=== PATIENT | female | born 1995 | race Caucasian/White ===

== ENCOUNTER 2017-07-13 09:55 | Outpatient (RCR) | payer OTHER ==
[2017-04-18 08:01] VITALS: BP 111/66
--- NOTE | 2017-04-18 16:52 | ONCOLOGY HISTORY AND PHYSICAL ---
REFERRING PROVIDER TAMMY Saenz REASON FOR CONSULTATION 1. Factor V Leiden heterozygosity. 2. Concern for iron overload/hemochromatosis. 3. Contraception concerns. CHIEF COMPLAINT Patient feels well today. 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 She is otherwise healthy, and her only medication at this time is the Nexplanon implant. She presents today at the request of Ms. Nick for consultation regarding several issues. The patient does have a known diagnosis of factor V Leiden heterozygosity, from testing performed recently. She has also undergone basic labs to include blood counts, chemistries, and iron studies. She has been found to have an extremely high level of iron, with percent saturation of 100%. There are obvious concerns for hereditary hemochromatosis. In addition, she is currently on a contraception implant, and she is concerned about what this means for her clotting risk. REVIEW OF SYSTEMS Otherwise negative, and all systems were reviewed. PAST MEDICAL HISTORY Unremarkable with the exception of known factor V Leiden heterozygosity and recent concern for iron overload. She has no known history of thrombosis. CURRENT MEDICATIONS Nexplanon implant. ALLERGIES No known drug allergies. SOCIAL HISTORY The patient is a nonsmoker. She does drink alcohol on occasion. There is no history of illegal drug abuse. FAMILY HISTORY Again, there is a family history of DVT in her brother diagnosed at age 30. He has a known factor V Leiden mutation. Her mother has a known factor V Leiden mutation. Another brother donates blood regularly, but definitive diagnosis of hereditary hemochromatosis is unknown. VITAL SIGNS Temperature is 97.2, blood pressure 111/66, heart rate is 83, respirations 16, oxygen saturation is 98% on room air. Weight is 58.9 kg. PHYSICAL EXAMINATION GENERAL: Patient is alert and oriented times three, in no apparent distress sitting in the exam room chair. She appears healthy, and she is interactive and quite pleasant. HEENT: Exam reveals anicteric sclerae. NEUROLOGIC: Exam is grossly nonfocal and her gait is normal. SKIN: Exam reveals no concerning rash or lesion. EXTREMITIES: Exam reveals no edema, clubbing or cyanosis. LABORATORY STUDIES Reviewed per the paper chart and [facility] record. IMAGING None today. ASSESSMENT AND RECOMMENDATIONS 1. Factor V Leiden heterozygosity. I had a good visit with Alicia today about this abnormal finding. We discussed her increased risk of thrombosis due to the presence of this mutation. We also discussed a risk of thrombosis in the context of her ongoing contraception. She does not have a personal history of thrombosis, so there is no indication for anticoagulation. We discussed situations that will lead to higher risk of having a clot. Fortunately, she is a nonsmoker, and she understands the importance of never smoking. We moved on to discuss her current method of contraception. I have recommended that she consider perhaps using an IUD or NuvaRing, for example, to try to reduce the level of systemic exposure to estrogens/progestins. She will give this some thought, and she would like to talk with Ms. Nick about this further. I have also discussed the need to discuss with her family members whether they would want to undergo testing for the Factor V Leiden mutation. 2. Iron overload. Upon review of her labs, she is obviously iron overloaded, but I do not see that HFE studies have been performed. I have recommended that she have these done today. We discussed the concern for hereditary hemochromatosis, iron overload, and snf complications that can arise as a result of iron overload. She currently has no signs or symptoms to suggest underlying heart disease. Blood sugars have not been abnormal. Her liver function tests are unremarkable, and she has no new joint issues, but she has been dealing with problems with her joints due to her history of cerebral palsy. These joint symptoms have not changed significantly over time. We moved on to discuss the role of therapeutic phlebotomy, which I do think is indicated for her, even as we wait for her hereditary hemochromatosis studies to return. I will enter orders for her to have one unit of blood phlebotomized weekly for the next six weeks. She will then go to the lab and have repeat studies done so that we can review them at the time of her next followup with me in six to eight weeks. Thank you very much, Ms. Nick, for allowing me to take part in the care of this delightful patient. Please do not hesitate to call with any questions or concerns. MORAIMA
[2017-04-20 15:15] VITALS: BP 124/62
[2017-04-20] MEDS: LIDOCAINE/SOD BICARB 8.4% SYR ID PRN (15:19)
[2017-04-20 15:20] VITALS: BP 126/79
[2017-04-20 15:30] VITALS: BP 119/94
[2017-04-20 16:00] VITALS: BP 110/71
[2017-04-20 16:30] VITALS: BP 114/72
[2017-04-23 13:10] VITALS: BP 113/71
--- NOTE | 2017-04-26 04:22 | [facility] ONCOLOGY NOTE ---
DATE OF VISIT: April 23, 2017 CHIEF COMPLAINT/REASON FOR VISIT The patient is a pleasant patient of Dr. Harris who presents for an acute visit followup following a syncopal episode with phlebotomy. 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 Given her percent saturation, I am nearly certain that she has hemochromatosis, and her labs are pending. I completely agree with the assessment made by Dr. Harris dated April 18, 2017. Her interval history includes the phlebotomy of one unit, but then had a syncopal episode immediately following the phlebotomy. She is concerned, given , "I am only 5 foot 3 and 130 pounds" that one unit of blood is too much. It is very reasonable to use phlebotomy of a half unit in the future. We will repeat labs in approximately two weeks to see what benefit she receives from this. If her iron studies are much better, we could forego phlebotomy for another month or two until her iron starts to increase again. Given the syncope , I have asked her to check labs monthly for now, but we will cancel further phlebotomies in the short term. PAST MEDICAL HISTORY 1. Factor V Leiden heterozygosity. No known history of thrombosis. 2. Suspected hereditary hemochromatosis. Syncope with a full unit phlebotomy. CURRENT MEDICATIONS Nexplanon implant. ALLERGIES No known drug allergies. SOCIAL HISTORY Nonsmoker, rare alcohol. No illicit drug use. FAMILY HISTORY Brother with a DVT at age 30 with known factor V Leiden mutation. Mother with factor V Leiden mutation. Unknown if anyone in the family has hereditary hemochromatosis, but her brother has issues with iron. REVIEW OF SYSTEMS CONSTITUTIONAL: No fevers, chills, significant weight change. HEENT: No headache or vision changes. CARDIOVASCULAR: No chest pain, dyspnea on exertion or edema. RESPIRATORY: No shortness of breath, wheeze, cough. GI: No nausea or vomiting. : No dysuria or hematuria. Remainder of full 14-point review of systems is otherwise negative. PHYSICAL EXAMINATION VITAL SIGNS: Blood pressure 113/71, pulse 71, respiratory rate 16, temperature 98.5 Fahrenheit, oxygen saturation 95% on room air. Weight 58.9 kg. Pain 0/10 , fatigue 5/10. GENERAL: Stable condition, resting comfortably in the chair. HEENT: Normocephalic, atraumatic. EXTREMITIES: No clubbing, cyanosis or edema. PSYCHIATRIC: Normal mood and affect. Full physical exam deferred today due to amount of time spent in counseling and coordination of care. ASSESSMENT AND PLAN The patient is a pleasant 21-year-old female with the followin. Factor V Leiden heterozygosity. Agree with avoiding estrogen/progesterone supplementation. 2. Iron overload. I am very confident that she has hereditary hemochromatosis , and the labs are still pending. 3. Syncope following phlebotomy for #2. Would avoid a full unit phlebotomy in the future and perform only a half unit phlebotomy. Considering the fatigue, we will recheck her labs in approximately two weeks to see if she is a candidate for further phlebotomy at that time. I advised that I fully anticipate she will need periodic phlebotomies in the future, but we could utilize a half unit phlebotomy. We will check her again in 2-3 weeks, and then again a month after that, and follow up with Dr. Harris as he planned. I answered all of her questions today. Billing: Return visit level 3. Total time 20 minutes, counseling time 15. MTDD
[2017-06-13 14:34] VITALS: BP 108/69
--- NOTE | 2017-06-13 20:20 | ONCOLOGY FOLLOW UP NOTE ---
EVENT DATE: June 13, 2017 REASON FOR FOLLOWUP 1. Factor V Leiden heterozygosity. 2. Concern for iron overload/hemochromatosis. CHIEF COMPLAINT The patient feels well today. HISTORY OF PRESENT ILLNESS Alicia presents to clinic for a follow-up visit today. She reports that she is feeling pretty good in general, but she had a tough time with her first attempted therapeutic phlebotomy. She relates her experience to me. She had completed the one unit phlebotomy, and had rather abruptly felt nauseated, and then she lost consciousness very briefly for several seconds. She was attended to quickly by infusion staff, and she had complete recovery and returned home. She had some fatigue for the following days, but she reports no residual symptoms. She did have followup with my colleague, Dr. Kahn, thereafter. He had made the recommendation to have her recheck her labs and follow up with me today. She reports that she has had a busy schedule. She is anticipating a lot of hours to be spent in preparation for upcoming finals. 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 REVIEW OF SYSTEMS Otherwise negative, and all systems were reviewed. PAST MEDICAL HISTORY Unremarkable with the exception of known factor V Leiden heterozygosity and recent concern for iron overload. She has no known history of thrombosis. CURRENT MEDICATIONS Nexplanon implant. ALLERGIES No known drug allergies. SOCIAL HISTORY The patient is a nonsmoker. She does drink alcohol on occasion. There is no history of illegal drug abuse. FAMILY HISTORY Again, there is a family history of DVT in her brother diagnosed at age 30. He has a known factor V Leiden mutation. Her mother has a known factor V Leiden mutation. Another brother donates blood regularly, but definitive diagnosis of hereditary hemochromatosis is unknown. VITAL SIGNS Temperature is 98, blood pressure 108/69, pulse is 99, respirations 16, oxygen saturation is 94% on room air. Weight is 58.2 kg. PHYSICAL EXAMINATION GENERAL: Patient is alert and oriented times three, in no apparent distress sitting in the exam room chair. She appears healthy. HEENT: Exam reveals anicteric sclerae. NEUROLOGIC: Exam is grossly nonfocal and her gait is normal. EXTREMITIES: Exam reveals no edema, clubbing or cyanosis. LABORATORY STUDIES Reviewed per the outside laboratory. She has had stability/slight improvement in her serum ferritin and iron studies. Her CBC remains normal. ASSESSMENT AND RECOMMENDATIONS 1. Factor V Leiden heterozygosity. The patient was given information today about a potential reasonable switch from her current implant to IUD placement. 2. Concern for iron overload. As discussed with the patient today, I again do not see results of her hemochromatosis testing. I have asked clinic staff to search for these records. If this has not been drawn, we will again request for the HFE studies to be done. I do think she has hereditary hemochromatosis, and we spent time reviewing management. I do think it would be reasonable for her to consider therapeutic phlebotomy every two weeks or so, and we would not again draw an entire unit of blood. Instead, we would draw half a unit, and monitor her symptoms closely. If she does end up tolerating this, I think having therapeutic phlebotomy every other week for the next three months would be a good start. Once she achieves a borderline iron deficient state, which would be our goal, she would then be able to move forward with maintenance therapeutic phlebotomies on a less rigorous schedule. I will plan to see her back in three months for followup, and labs will again be reviewed at that time. MORAIMA
[2017-06-29 11:00] VITALS: BP 105/80
[2017-07-02] MEDS: LIDOCAINE/SOD BICARB 8.4% SYR ID PRN (09:16)
[2017-07-02 09:18] VITALS: BP 112/76
[2017-07-02 10:07] VITALS: BP 104/72
[2017-07-02 10:37] VITALS: BP 115/53
[~2017-07-13] VITALS: Ht 160 cm; Wt 59.2 kg
[~2017-07-13 09:55] MED LIST: DEXTROSE 5%(*) 100 ML BAG 100 ML IVPB PRN; ETON68IM SQ; NS(*) 0.9% 100 ML BAG 100 ML IVPB PRN; NS(*) 0.9% 1000 ML BAG 1,000 ML IV PRN
[2017-07-13 10:13] VITALS: BP 103/72
== END 2017-07-16 ==
LOC: SPU 09:55
PROVIDERS: ATTEND Internal Medicine Medical Oncology
DX: E83.110 Hereditary hemochromatosis (principal); E72.12 Methylenetetrahydrofolate reductase deficiency; D68.51 Activated protein C resistance
CPT/HCPCS: 85014; 85027; 99195; 99202; 99212; J7030

== ENCOUNTER 2018-01-16 14:30 | Outpatient (RCR) | payer OTHER ==
[2017-12-06 15:03] VITALS: BP 114/63
[2017-12-06 15:26] LABS: PLATELET COUNT, AUTOMATED 244 K/uL (150-450)
[2018-01-04 10:46] VITALS: BP 119/60
[2018-01-04 10:56] LABS: PLATELET COUNT, AUTOMATED 212 K/uL (150-450)
[~2018-01-16 14:30] MED LIST changes: +LIDOCAINE/SOD BICARB 8.4% SYR ID PRN; -NS(*) 0.9% 1000 ML BAG 1,000 ML IV PRN
[2018-01-16 14:36] VITALS: BP 108/69
--- NOTE | 2018-01-23 22:51 | ONCOLOGY FOLLOW UP NOTE ---
EVENT DATE: January 16, 2018 REASON FOR FOLLOWUP 1. Factor V Leiden heterozygosity. 2. Hereditary hemochromatosis. INTERIM HISTORY Alicia returns to clinic for a followup visit today. In general, she has been feeling pretty good. She does report some fatigue, but she blames this mostly on studying for finals. She has continued with therapeutic phlebotomy of 0.5 units each session. She has had no further episodes of lightheadedness or weakness. She has had followup labs drawn, and she is here to review the results. REVIEW OF SYSTEMS Otherwise negative, and all systems are reviewed. PAST MEDICAL HISTORY 1. Factor V Leiden heterozygosity. 2. Hereditary hemochromatosis (C282Y homozygosity). CURRENT MEDICATIONS Nexplanon implant. ALLERGIES No known drug allergies. SOCIAL HISTORY The patient is a nonsmoker. She does drink alcohol on occasion. There is no history of illegal drug abuse. FAMILY HISTORY Again, there is a family history of DVT in her brother, diagnosed at age 30. He has a known factor V Leiden mutation. Her mother has a known factor V Leiden mutation. Another brother donates blood regularly, but definitive diagnosis of hereditary hemochromatosis is unknown. VITAL SIGNS Temperature is 97.4, blood pressure 108/69, heart rate is 87, respirations 16. PHYSICAL EXAMINATION GENERAL: Patient is alert and oriented times three, no apparent distress, sitting in the exam room chair. She is in good spirits and quite interactive. HEENT: Anicteric sclerae. NEUROLOGIC: Grossly nonfocal, and her gait is normal. EXTREMITIES: No edema, clubbing, or cyanosis. There is no erythema or tenderness to palpation. SKIN: Cursory reveals no concerning rash or lesion. LABORATORY STUDIES Reviewed per the [facility] record. ASSESSMENT AND PLAN Hereditary hemochromatosis. Alicia continues to do well with therapeutic phlebotomy. We spent time today reviewing her labs. She has made significant progress in terms of her iron stores, and we spent time discussing her goal ferritin of 50 or less for ideal management of her iron stores. She has been in the range of about 100, and she could make a bit more progress. We will have her plan on moving to every other week phlebotomies, and we will continue to monitor her labs. I will plan to see her back in a few months for followup. She is certainly more than welcome to call with any questions or concerns in the meantime. MORAIMA
== END 2018-03-05 ==
LOC: ONC 14:30
PROVIDERS: ATTEND Internal Medicine Medical Oncology
DX: E83.110 Hereditary hemochromatosis (principal); E72.12 Methylenetetrahydrofolate reductase deficiency
CPT/HCPCS: 36415; 82040; 82247; 82310; 82374; 82435; 82565; 82728; 82947; 83540; 83550; 84075; 84132; 84155; 84295; 84450; 84460; 84520; 85025; 99195; 99212

== ENCOUNTER 2018-05-15 14:53 | Outpatient (RCR) | payer OTHER ==
[2018-03-12 14:12] VITALS: BP 114/68
[2018-03-12 14:13] LABS: PLATELET COUNT, AUTOMATED 199 K/uL (150-450)
[2018-04-08 08:07] VITALS: BP 113/77
[2018-04-08 08:26] LABS: PLATELET COUNT, AUTOMATED 231 K/uL (150-450)
[2018-04-08 09:23] VITALS: BP 116/74
--- NOTE | 2018-04-08 09:41 | NUR ---
SW provided letter of excuse from class for patient today following her phlebotomy.
[2018-04-08] MEDS: LIDOCAINE/SOD BICARB 8.4% SYR ID PRN (09:49)
[2018-04-15 11:50] LABS: PLATELET COUNT, AUTOMATED 261 K/uL (150-450)
[2018-04-17 15:34] VITALS: BP 121/72
--- NOTE | 2018-04-19 04:46 | ONCOLOGY FOLLOW UP NOTE ---
EVENT DATE: April 17, 2018 CHIEF COMPLAINT 1. Factor V Leiden heterozygosity. 2. Hereditary hemochromatosis. HISTORY OF PRESENT ILLNESS The patient returns to clinic today for a followup visit. She reports overall feeling generally good. She does have some fatigue, but attributes this mostly to studying for school. 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 She tells me that she remains compliant with therapeutic phlebotomy of 0.5 units every 4-6 weeks. Currently, her average is one treatment/0.5 units of phlebotomy about every five weeks. She denies any further episodes of lightheadedness or weakness. She continues to follow up with labs. She is slightly concerned about her hematocrit dropping down to 43% from 49% per most recent labs last week. She is asymptomatic. PAST MEDICAL HISTORY 1. Factor V Leiden heterozygosity. 2. Hereditary hemochromatosis (C282Y homozygosity). CURRENT MEDICATIONS Nexplanon implant. ALLERGIES No known drug allergies. SOCIAL HISTORY The patient is a nonsmoker. She does drink alcohol on occasion. There is no history of illegal drug abuse. FAMILY HISTORY Again, there is a family history of DVT in her brother, diagnosed at age 30. He has a known factor V Leiden mutation. Her mother has a known factor V Leiden mutation. Another brother donates blood regularly, but definitive diagnosis of hereditary hemochromatosis is unknown. REVIEW OF SYSTEMS A 12-point review of systems is performed and is negative, with the exception of statements above. Patient reports a mild fatigue, but otherwise is feeling well. PHYSICAL EXAMINATION VITAL SIGNS: Weight per chart. Temperature 96.7 degrees F, BP 121/72, P 79, R 16, oxygen saturation 92% on room air. GENERAL: Patient is a well-developed young woman who appears well nourished and well hydrated. She is in no acute distress. HEAD: Normocephalic, atraumatic. EYES: Sclerae anicteric. MOUTH: Moist mucous membranes. NECK: Supple. No adenopathy. LUNGS: Lungs reveal clear breath sounds to auscultation bilaterally. CARDIOVASCULAR: Regular rate and rhythm. No murmurs. No ectopy. Peripheral vascular examination reveals apparently peripheral normal blood flow. EXTREMITIES: No edema, clubbing, or cyanosis. There is no erythema or tenderness to palpation. DERM: Cursory examination does not reveal any suspicious lesions. NEUROLOGIC: Grossly intact. Patient is alert and oriented x3. PSYCH: Mood and affect are appropriate. She is slightly anxious on exam, but is at baseline. LABORATORY CBC on 04/15/2018: WBC 5.4, ANC 2.8, Hemoglobin 15.0, Hematocrit 43.1%, Platelets 261,000. Iron studies on the same date of service: Ferritin 89, iron saturation 57.6%, TIBC 269, Iron 155. IMPRESSION AND PLAN This is a young, pleasant 22-year-old female with a history of hereditary hemochromatosis. She continues to tolerate therapeutic phlebotomy quite well. She currently receives one therapeutic phlebotomy of 0.5 units approximately every 4-6 weeks. She is only receiving half a unit during phlebotomy, as she did have difficulty with her first phlebotomy and had a syncopal episode. Since then, half a unit is much more tolerable for her. She has not had any similar events. We spent time today reviewing her most recent labs, in particular her most recent iron levels. Her ferritin has decreased down to 89, and her iron saturation has come down to 58%. She is aware that our goal is a ferritin of 50 or less and an iron saturation of 25% or less, although we did discuss realistic goals, and she is aware that she may never reach a goal ferritin of 50. Dr. Rubio did come in to the room and spoke with the patient during our visit, and agrees with the above assessment. We also explained to the patient that if we changed her current phlebotomy schedule, we could potentially cause her to become anemic and iron deficient, resulting in symptomatic iron deficiency anemia. 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 1. Hereditary hemochromatosis, Factor V Leiden heterozygosity: Reviewed with patient per above. She is aware of her most recent lab results. She will continue on her current lab schedule and her current therapeutic phlebotomy schedule at 0.5 units once every 4-6 weeks. 2. Patient will return to the clinic in three months for followup with MD. 3. As noted, Dr. Rubio agrees with the above assessment and plan. [facility]. [facility] HOSPITALShayy
[~2018-05-15 14:53] MED LIST changes: -LIDOCAINE/SOD BICARB 8.4% SYR ID PRN
[2018-05-15 14:58] VITALS: BP 120/77
[2018-05-15] MEDS: LIDOCAINE/SOD BICARB 8.4% SYR ID PRN (15:30)
[2018-05-15 16:00] VITALS: BP 126/67
== END 2018-06-09 ==
LOC: SPU 14:53
PROVIDERS: ATTEND Internal Medicine Medical Oncology
DX: E83.110 Hereditary hemochromatosis (principal); E72.12 Methylenetetrahydrofolate reductase deficiency
CPT/HCPCS: 36415; 82728; 83540; 83550; 85014; 85025; 99195; 99212

== ENCOUNTER 2018-07-21 17:02 | Emergency (ER) | payer OTHER ==
[~2018-07-21 17:02] MED LIST changes: -DEXTROSE 5%(*) 100 ML BAG 100 ML IVPB PRN; -NS(*) 0.9% 100 ML BAG 100 ML IVPB PRN
--- NOTE | 2018-07-21 17:31 | ER Report ---
History and Physical Time Seen By MD: 17:23 Hx. of Stated Complaint: Pt. having abdominal pain and cramping with diarrhea for over a week. Decreased appetite. No fevers, but clammy. Pain intermittent, but woke her from sleep 2 nights ago. Has not been around anyone that has been sick. HPI/ROS CHIEF COMPLAINT: Abdominal pain HISTORY OF PRESENT ILLNESS: 22 year old female presents to ED with abdominal pain that started 1.5 weeks ago. Patient reports she had abdominal pain and with constipation. She went to her PCP who had her take Miralax. Reports that she then had a small BM. However, has since had problems with constipation, gas, bloating, and mid lower abdominal pain. Reports a bout of diarrhea two days ago stating it was loose and yellow stool. Denies associated symptoms of nausea, vomiting, and fevers. REVIEW OF SYSTEMS: Constitutional: No fevers, change in appetite, chills, fatigue Respiratory: No cough, no dyspnea. Cardiovascular: No chest pain, no palpitations. Gastrointestinal: No vomiting. Mid-lower abdominal pain, constipation, bloating, gas, reflux symptoms with meals. Musculoskeletal: No back pain. Allergies: Coded Allergies: No Known Drug Allergies (Unverified , 07/21/18) Home Meds Reported Medications Etonogestrel (NEXPLANON) 68 Mg Implant, 68 MG SQ DIRECTED, IMPLANT 04/18/17 Past Medical/Surgical History Past medical hx significant for migraines, frequent yeast infections, hemochromotosis followed by the cancer center. She has a family hx of factor 5 disorder. Past surgical hx for wisdom teeth removal and adenoid removal. Reviewed Nurses Notes: Yes Hx Smoking: No Smoking Status: Never Smoker Hx Substance Use Disorder: No Hx Alcohol Use: No Constitutional Vital Sign - Last 24 Hours 07/21/18 07/21/18 07/21/18 07/21/18 17:06 17:11 18:02 18:32 Temp 98.0 Pulse 72 78 65 B/P (MAP) 111/68 111/68 (82) Pulse Ox 95 94 96 O2 Delivery Room Air 07/21/18 07/21/18 07/21/18 07/21/18 18:33 19:00 19:05 19:30 Pulse ??? B/P (MAP) 108/56 (73) 107/61 (76) 110/62 (78) 07/21/18 07/21/18 07/21/18 07/21/18 19:35 20:00 20:05 20:30 Pulse ??? 67 B/P (MAP) 109/63 (78) 98/63 (75) Pulse Ox 92 07/21/18 20:35 Pulse 71 Pulse Ox 92 Physical Exam General Appearance: The patient is alert, has no immediate need for airway protection and no current signs of toxicity. Eyes: Pupils equal and round no injection. Respiratory: Chest is non tender, lungs are clear to auscultation. Cardiac: regular rate and rhythm Gastrointestinal: Abdomen is soft and non tender, no masses, but distended. bowel sounds hypoactive. Musculoskeletal: Neck: Neck is supple and non tender. Extremities have full range of motion and are non tender. Skin: No rashes or lesions. DIFFERENTIAL DIAGNOSIS: After history and physical exam differential diagnosis was considered for constipation, , colitis, reflux, pancreatitis. Medical Decision Making Data Points Result Diagram: 07/21/18 1754 07/21/18 1754 Laboratory Hematology Test 07/21/18 17:54 07/21/18 18:54 Red Blood Count 4.89 M/uL (4.17-5.56) Mean Corpuscular Volume 89.2 fL (80.0-96.0) Mean Corpuscular Hemoglobin 31.4 pg (26.0-33.0) Mean Corpuscular Hemoglobin Concent 35.2 g/dL (32.0-36.0) Red Cell Distribution Width 13.2 % (11.5-14.5) Mean Platelet Volume 8.6 fL (7.2-11.1) Neutrophils (%) (Auto) 51.4 % (39.4-72.5) Lymphocytes (%) (Auto) 36.3 % (17.6-49.6) Monocytes (%) (Auto) 9.0 % (4.1-12.4) Eosinophils (%) (Auto) 2.8 % (0.4-6.7) Basophils (%) (Auto) 0.5 % (0.3-1.4) Nucleated RBC Relative Count (auto) 0.1 /100WBC Neutrophils # (Auto) 3.5 K/uL (2.0-7.4) Lymphocytes # (Auto) 2.5 K/uL (1.3-3.6) Monocytes # (Auto) 0.6 K/uL (0.3-1.0) Eosinophils # (Auto) 0.2 K/uL (0.0-0.5) Basophils # (Auto) 0.0 K/uL (0.0-0.1) Nucleated RBC Absolute Count (auto) 0.00 K/uL Sodium Level 140 mmol/L (137-145) Potassium Level 3.8 mmol/L (3.5-5.0) Chloride Level 105 mmol/L (98-107) Carbon Dioxide Level 24 mmol/L (22-31) Blood Urea Nitrogen 13 mg/dl (7-18) Creatinine 0.70 mg/dl (0.52-1.04) Glomerular Filtration Rate Calc > 60.0 Random Glucose 91 mg/dl (75-110) Calcium Level 9.4 mg/dl (8.4-10.2) Total Bilirubin 0.2 mg/dl (0.2-1.3) Aspartate Amino Transf (AST/SGOT) 24 U/L (0-35) Alanine Aminotransferase (ALT/SGPT) 26 U/L (0-56) Alkaline Phosphatase 56 U/L (0-126) C-Reactive Protein < 0.5 mg/dl (<1.0) Total Protein 7.3 g/dl (6.3-8.2) Albumin 4.4 g/dl (3.5-5.0) Amylase Level 108 U/L (0-110) Lipase 67 U/L (23-300) Urine Color Straw Urine Clarity Clear Urine pH 6.0 pH (4.8-9.5) Urine Specific Mineral 1.005 Urine Protein Negative mg/dL (NEGATIVE) Urine Glucose (UA) Negative mg/dL (NEGATIVE) Urine Ketones Negative mg/dL (NEGATIVE) Urine Blood Negative (NEGATIVE) Urine Nitrite Negative (NEGATIVE) Urine Bilirubin Negative (NEGATIVE) Urine Urobilinogen Negative mg/dL (0.2-1.9) Urine Leukocyte Esterase Trace (NEGATIVE) Urine RBC None /HPF (0-2/HPF) Urine WBC <1 /HPF (0-5/HPF) Urine Squamous Epithelial Cells Few /LPF (</=FEW) Urine Bacteria Few /HPF (NONE-FEW) Urine Mucus None /HPF (NONE-FEW) Urine HCG, Qualitative Negative (NEGATIVE) Chemistry Test 07/21/18 17:54 07/21/18 18:54 White Blood Count 6.8 k/uL (4.5-11.0) Red Blood Count 4.89 M/uL (4.17-5.56) Hemoglobin 15.4 g/dL (12.0-16.0) Hematocrit 43.7 % (34.0-47.0) Mean Corpuscular Volume 89.2 fL (80.0-96.0) Mean Corpuscular Hemoglobin 31.4 pg (26.0-33.0) Mean Corpuscular Hemoglobin Concent 35.2 g/dL (32.0-36.0) Red Cell Distribution Width 13.2 % (11.5-14.5) Platelet Count 212 K/uL (150-450) Mean Platelet Volume 8.6 fL (7.2-11.1) Neutrophils (%) (Auto) 51.4 % (39.4-72.5) Lymphocytes (%) (Auto) 36.3 % (17.6-49.6) Monocytes (%) (Auto) 9.0 % (4.1-12.4) Eosinophils (%) (Auto) 2.8 % (0.4-6.7) Basophils (%) (Auto) 0.5 % (0.3-1.4) Nucleated RBC Relative Count (auto) 0.1 /100WBC Neutrophils # (Auto) 3.5 K/uL (2.0-7.4) Lymphocytes # (Auto) 2.5 K/uL (1.3-3.6) Monocytes # (Auto) 0.6 K/uL (0.3-1.0) Eosinophils # (Auto) 0.2 K/uL (0.0-0.5) Basophils # (Auto) 0.0 K/uL (0.0-0.1) Nucleated RBC Absolute Count (auto) 0.00 K/uL Glomerular Filtration Rate Calc > 60.0 Calcium Level 9.4 mg/dl (8.4-10.2) Total Bilirubin 0.2 mg/dl (0.2-1.3) Aspartate Amino Transf (AST/SGOT) 24 U/L (0-35) Alanine Aminotransferase (ALT/SGPT) 26 U/L (0-56) Alkaline Phosphatase 56 U/L (0-126) C-Reactive Protein < 0.5 mg/dl (<1.0) Total Protein 7.3 g/dl (6.3-8.2) Albumin 4.4 g/dl (3.5-5.0) Amylase Level 108 U/L (0-110) Lipase 67 U/L (23-300) Urine Color Straw Urine Clarity Clear Urine pH 6.0 pH (4.8-9.5) Urine Specific Mineral 1.005 Urine Protein Negative mg/dL (NEGATIVE) Urine Glucose (UA) Negative mg/dL (NEGATIVE) Urine Ketones Negative mg/dL (NEGATIVE) Urine Blood Negative (NEGATIVE) Urine Nitrite Negative (NEGATIVE) Urine Bilirubin Negative (NEGATIVE) Urine Urobilinogen Negative mg/dL (0.2-1.9) Urine Leukocyte Esterase Trace (NEGATIVE) Urine RBC None /HPF (0-2/HPF) Urine WBC <1 /HPF (0-5/HPF) Urine Squamous Epithelial Cells Few /LPF (</=FEW) Urine Bacteria Few /HPF (NONE-FEW) Urine Mucus None /HPF (NONE-FEW) Urine HCG, Qualitative Negative (NEGATIVE) Urinalysis Test 07/21/18 18:54 Urine Color Straw Urine Clarity Clear Urine pH 6.0 pH (4.8-9.5) Urine Specific Mineral 1.005 Urine Protein Negative mg/dL (NEGATIVE) Urine Glucose (UA) Negative mg/dL (NEGATIVE) Urine Ketones Negative mg/dL (NEGATIVE) Urine Blood Negative (NEGATIVE) Urine Nitrite Negative (NEGATIVE) Urine Bilirubin Negative (NEGATIVE) Urine Urobilinogen Negative mg/dL (0.2-1.9) Urine Leukocyte Esterase Trace (NEGATIVE) Urine RBC None /HPF (0-2/HPF) Urine WBC <1 /HPF (0-5/HPF) Urine Squamous Epithelial Cells Few /LPF (</=FEW) Urine Bacteria Few /HPF (NONE-FEW) Urine Mucus None /HPF (NONE-FEW) Urine HCG, Qualitative Negative (NEGATIVE) EKG/Imaging Imaging Examination: ACUTE ABDOMEN SERIES 3 VIEW Comparison: None. History: abdominal pain x 10days Findings: Cardiac and hilar contour size is normal. No consolidation, nodule, or peribronchial inflammation. No pneumothorax, edema, or effusion. No pneumoperitoneum. Small bowel gas pattern is unremarkable. Moderate amount of stool predominantly within the right hemicolon. No evidence of mass effect or organomegaly. No soft tissue calcifications. Osseous structures are intact. IMPRESSION: 1. Negative chest. 2. Moderate amount of stool in the colon. Report Dictated By: Dandy Garcia MD at 07/21/2018 8:33 PM Report E-Signed By: Dandy Garcia MD at 07/21/2018 8:35 PM ED Course/Re-evaluation ED Course Upon arrival to the ED patient admitted to an exam room, hx and physical obtained, differentials considered. Patient presents to ED with abdominal pain that started 1.5 weeks ago. Reports she had abdominal pain and with constipation. She went to her PCP who had her take Miralax. Reports that she th en had a small BM. However, has since had problems with constipation, gas, bloating, reflux, and mid lower abdominal pain. Reports a bout of diarrhea two days ago stating it was loose and yellow stool. Denies associated symptoms of nausea, vomiting, and fevers. Abdomen distended with hypoactive bowel sounds. Heart rate and rhythm normal. Lungs are clear. CBC, CMP, UA, urine HCG, amylase, lipase, and CRP obtained, all of which were normal. abdominal x-ray then obtained. Findings with moderate amount of stool in the colon. No other acute findings noted. Informed patient of results. Gave patient one dose of magnesium citrate. Will have patient discharge home tonight. If no improvement, she is to take another dose of magnesium citrate in the morning. She will follow-up with her PCP. Patient is in agreement with plan of care. Decision to Disposition Date: Jul 21, 2018 Decision to Disposition Time: 20:50 Depart Departure Latest Vital Signs Vital Signs Date Time Temp Pulse Resp B/P (MAP) Pulse Ox O2 Delivery O2 Flow Rate FiO2 07/21/18 20:35 71 92 07/21/18 20:30 98/63 (75) 07/21/18 17:06 98.0 Room Air Impression: Primary Impression: Constipation Condition: Improved Disposition: HOME OR SELF-CARE Patient Instructions: Constipation (ED) Additional Instructions: Increase fluid intake. Increase fiber in your diet. Increase exercise. Follow up with your primary care provider in the next week. Return to the ER if condition worsens. If no improvement with the Magnesium Citrate you may repeat tomorrow morning. Problem Qualifiers Primary Impression: Constipation Constipation type: unspecified constipation type Qualified Codes: K59.00 - Constipation, unspecified TAMIKO BAILEY Jul 21, 2018 17:31
[2018-07-21] MEDS ORDERED: NS(*) 0.9% 1000 ML BAG 1,000 ML IV ONE (17:37)
[2018-07-21 18:11] LABS: PLATELET COUNT, AUTOMATED 212 K/uL (150-450)
[2018-07-21 20:30] VITALS: BP 98/63
--- NOTE | 2018-07-21 20:39 | RADIOLOGY IMAGING REPORT ---
FACILITY: [facility] PATIENT NAME: Alicia Riddle : 1995 MR: [id number] V: [id number] EXAM DATE: ORDERING PHYSICIAN: TAMIKO BAILEY TECHNOLOGIST: Location: [facility] [place] Patient: Alicia Riddle : 1995 Visit/Account:[id number] Date of Sevice: 07/21/2018 Examination: ACUTE ABDOMEN SERIES 3 VIEW Comparison: None. History: abdominal pain x 10days Findings: Cardiac and hilar contour size is normal. No consolidation, nodule, or peribronchial infla mmation. No pneumothorax, edema, or effusion. No pneumoperitoneum. Small bowel gas pattern is unremarkable. Moderate amount of stool predominantl y within the right hemicolon. No evidence of mass effect or organomegaly. No soft tissue calcificat ions. Osseous structures are intact. IMPRESSION: 1. Negative chest. 2. Moderate amount of stool in the colon. Report Dictated By: Dandy Garcia MD at 07/21/2018 8:33 PM Report E-Signed By: Dandy Garcia MD at 07/21/2018 8:35 PM WSN:[id number]
[2018-07-21] MEDS ORDERED: MAGNESIUM CITRATE 300 ML BTL PO ONE (20:50)
== END 2018-07-21 21:03 | disposition home or self-care (01) ==
LOC: ER 17:25
DX: K59.00 Constipation, unspecified (principal); R63.0 Anorexia
CPT/HCPCS: 74022; 81001; 81025; 82150; 83690; 85025; 86140; 96360; 99283; J7030; 82040; 82247; 82310; 82374; 82435; 82565; 82947; 84075; 84132; 84155; 84295; 84450; 84460; 84520

== ENCOUNTER 2018-08-28 09:00 | Outpatient (RCR) | payer OTHER ==
[2018-06-21 15:34] VITALS: BP 108/64
[2018-06-25 12:48] VITALS: BP 125/80
[2018-06-25 12:49] LABS: PLATELET COUNT, AUTOMATED 254 K/uL (150-450)
[2018-06-25] MEDS: LIDOCAINE/SOD BICARB 8.4% SYR ID PRN (13:45)
[2018-06-25 13:56] VITALS: BP 124/76
[2018-07-30 14:37] VITALS: BP 122/80
[2018-07-30 14:48] LABS: PLATELET COUNT, AUTOMATED 234 K/uL (150-450)
[2018-07-30] MEDS: LIDOCAINE/SOD BICARB 8.4% SYR ID PRN (15:00)
[2018-07-30 15:29] VITALS: BP 124/65
[2018-07-30 15:31] VITALS: BP 124/65
--- NOTE | 2018-07-31 03:25 | ONCOLOGY FOLLOW UP NOTE ---
EVENT DATE: July 30, 2018 CHIEF COMPLAINT Followup for factor V Leiden and hereditary hemochromatosis. HISTORY OF PRESENT ILLNESS Patient is a 22-year-old female who was seen today in followup. She undergoes phlebotomy (0.5 units) every four to six weeks. Her ferritin remains slightly elevated, last at 107, with a serum iron of 210. Iron saturation was 78.7%. She tolerates her phlebotomy fairly well. She does have some arthralgias, but feels it is likely related to her cerebral palsy. 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 HEMATOLOGY HISTORY Patient was diagnosed with elevated ferritin at age 20. She underwent workup and was found to have hereditary hemochromatosis (C282Y homozygosity). She is also heterozygous for factor V Leiden. Currently receiving phlebotomy on an [id number]-six-week basis. PAST MEDICAL HISTORY 1. Factor V Leiden heterozygosity. 2. Hereditary hemochromatosis (C282Y homozygosity). 3. Cerebral palsy. FAMILY HISTORY Brother was diagnosed with DVT at age 30 and has known factor V Leiden. Mother had a known factor V Leiden mutation. Another brother donates blood regularly, but no definitive diagnosis of hemochromatosis has been made. Father had a DVT but was negative for factor V Leiden. SOCIAL HISTORY Patient is single. She is at the [employer] in [facility] [place], [place] and has one year left. She does not smoke cigarettes. She drinks alcohol on occasion. MEDICATIONS Nexplanon implant every three months. ALLERGIES No known drug allergies. REVIEW OF SYSTEMS A 12-point review of systems is performed and is negative except as stated above. PHYSICAL EXAMINATION VITAL SIGNS: BP 124/65, P 62, R 16, temp 98.8, O2 sat 93%. GENERAL: Patient is a well-developed, well-nourished female in no acute distress. HEAD: Normocephalic, atraumatic. EYES: Sclerae anicteric. MOUTH: Moist mucous membranes. LUNGS: Clear bilaterally. CARDIOVASCULAR: Heart rate regular, 62 per minute, without murmur. EXTREMITIES: No edema. NEURO: Nonfocal. LABORATORY CBC today reveals a WBC of 5.6, hemoglobin 15.6, hematocrit 44.5, platelets 234,000. Iron studies are pending. IMPRESSION The patient is a 22-year-old female with factor V Leiden heterozygosity as well as hereditary hemochromatosis (C282Y homozygosity). She undergoes phlebotomy on an [id number]-[id number]-six-week basis in attempts to lower her ferritin less than 50 as well as hematocrit less than 40. PLAN 1. Hereditary hemochromatosis/factor V Leiden heterozygosity. As hematocrit today is over 40, she will undergo a 0.5 unit phlebotomy. She tolerated this well. 2. She will follow up with Dr. Rubio on 08/14/18. At that time, we will write standing orders so that she can have her labs obtained at the [facility]. She is in agreement with this plan. MORAIMA
[2018-08-14 14:00] VITALS: BP 127/79
--- NOTE | 2018-08-14 17:09 | ONCOLOGY FOLLOW UP NOTE ---
EVENT DATE: August 14, 2018 REASON FOR FOLLOWUP 1. Factor V Leiden heterozygosity. 2. Hereditary hemochromatosis. INTERIM HISTORY Alicia returns to clinic for a followup visit today. She reports no new symptoms. She has been feeling just fine. She is taking summer school classes. She plans to take a trip to [place] soon. She has continued with therapeutic phlebotomies per protocol, a half a unit each time. She has had no significant difficulty with the phlebotomies. She has had followup labs drawn, and she has concerns about them. REVIEW OF SYSTEMS Otherwise negative, and all systems were reviewed. PAST MEDICAL HISTORY 1. Factor V Leiden heterozygosity. 2. Hereditary hemochromatosis (C282Y homozygosity). CURRENT MEDICATIONS Nexplanon implant. ALLERGIES No known drug allergies. SOCIAL HISTORY The patient is a nonsmoker. She does drink alcohol on occasion. There is no history of illegal drug abuse. FAMILY HISTORY Again, there is a family history of DVT in her brother, diagnosed at age 30. He has a known factor V Leiden mutation. Her mother has a known factor V Leiden mutation. Another brother donates blood regularly, but definitive diagnosis of hereditary hemochromatosis is unknown. VITAL SIGNS Temperature is 99.5, blood pressure 127/79, heart rate is 76, respirations 16, oxygen saturation 93% on room air. Weight is 60.4 kg. PHYSICAL EXAMINATION GENERAL: Patient is alert and oriented times three, no apparent distress, sitting in the exam room chair. She is interactive and pleasant. Appears healthy. HEENT: Anicteric sclerae. NEUROLOGIC: Unchanged. SKIN: No concerning rash or lesions. LABORATORY STUDIES Reviewed today per outside lab. Her ferritin on 08/13/18 was 74.7, slightly down from prior. ASSESSMENT AND PLAN 1. Hereditary hemochromatosis. Alicia continues to do well with half unit therapeutic phlebotomy per protocol. She was concerned today that her serum iron was elevated as well as percent saturation. Her ferritin has come down a notch again down into the 70s. We spent time again discussing how we are going to monitor her progress with therapeutic phlebotomy now and in the future. We will be following her ferritin. She expresses understanding. I have recommended that she continue with monthly therapeutic phlebotomy for the time being as well as quarterly labs to keep an eye on her iron studies. She will follow up here in six to 12 months at her discretion. 2. Factor V Leiden heterozygosity. No signs or symptoms to suggest thrombosis today. MTDD
[~2018-08-28 09:00] MED LIST changes: +DEXTROSE 5%(*) 100 ML BAG 100 ML IVPB PRN; +NS(*) 0.9% 100 ML BAG 100 ML IVPB PRN
[2018-08-28 09:28] VITALS: BP 123/77
[2018-08-28 10:16] VITALS: BP 110/78
[2018-08-28] MEDS: LIDOCAINE/SOD BICARB 8.4% SYR ID PRN (10:38)
== END 2018-09-04 13:15 | disposition home or self-care (01) ==
LOC: SPU 09:00
PROVIDERS: ATTEND Internal Medicine Medical Oncology
DX: E83.110 Hereditary hemochromatosis (principal); E72.12 Methylenetetrahydrofolate reductase deficiency; D68.51 Activated protein C resistance
CPT/HCPCS: 36415; 82040; 82247; 82310; 82374; 82435; 82565; 82728; 82947; 83540; 83550; 84075; 84132; 84155; 84295; 84450; 84460; 84520; 85014; 85025; 99195; 99212